=== PATIENT | female | born 1965 | race Caucasian/White ===

== ENCOUNTER 2020-02-26 11:46 | Inpatient (IN) ==
[2020-02-26 13:33] LABS: Basophils # (auto) 0.01 K/uL (0-0.2); Basophils % (auto) 0.1 %; Eosinophils # (auto) 0.03 K/uL (0-0.5); Eosinophils % (auto) 0.3 %; Hematocrit (blood only) 33.2 % (37-47); Hemoglobin 10.3 g/dL (12.0-16.0); Immature Granulocytes # (auto) 0.01 K/uL (0.00-0.02); Immature Granulocytes % (auto) 0.1 %; Lymphocytes # (auto) 0.72 K/uL (1.2-3.4); Lymphocytes % (auto) 6.9 %; Mean Corpuscular Hemoglobin 28.9 pg (25-34); Mean Corpuscular Volume 93.3 fL (80-100); Mean Platelet Volume 9.6 fL (7.4-10.4); Monocytes # (auto) 0.88 K/uL (0.11-0.59); Monocytes % (auto) 8.5 %; Neutrophils # (auto) 8.75 K/uL (1.4-6.5); Neutrophils % (auto) 84.1 %; Platelet Count 352 K/uL (130-400); RDW Coefficient of Variation 13.1 % (11.5-14.5); Red Blood Count 3.56 M/uL (4.2-5.4)
--- NOTE | 2020-02-26 13:38 | Emergency Department Note ---
History of Present Illness General Chief complaint: Infection, Wound Stated complaint: POST SURGERY, SOB, PUS COMING FROM WOUND Time Seen by Provider: 02/26/20 13:03 Source: patient History of Present Illness Provider complaint: Right chest pain Onset (ago): day(s) Location: chest and right Radiation: non-radiation Pain Consistency: + constant Maximum Pain Intensity: 9 Quality: + sharp Relieved By: + other (Deep breaths) Associated symptoms: + fever/chills (Temperature of 100.1 today) and + shortness of breath; no cough This is a 55-year-old female with a history of lung cancer status post bilateral mastectomy and implant placement February 07 presenting with right-sided chest pain. She describes the pain as sharp. Is worse when she takes deep breaths. It started yesterday. It is associated with shortness of breath as well as a low- grade temperature of 100.1 today. She rates her pain a 9 out of 10 in severity at its worst. She denies any cough or cold symptoms or known exposure to COVID- 19. She has had no myalgias, abdominal pain, loss of taste or smell. She did have a COVID-19 test prior to her surgery on February 07 which was negative. She denies any leg swelling or pain. She is on Xarelto because she had a clot at the [id number] tip which was removed in [place] recently. She states that she has never had a clot in the lungs or legs. She was sent over by her doctor for evaluation of possible clot in her lungs. She has not taken Xarelto today. She does state that she also noticed that 1 of the wounds on the right side where she is having pain was draining some blood and pus since yesterday. She did have the drain pulled out last week on . Home Medications Home Medications Medication Instructions Recorded Confirmed Type calcium carbonate-vitamin D3 1 tab PO QAM 02/26/20 02/26/20 History [Caltrate with Vitamin D3] diazepam 5 mg PO UD 02/26/20 02/26/20 History letrozole 2.5 mg PO QAM 02/26/20 02/26/20 History multivitamin 1 tab PO QAM 02/26/20 02/26/20 History oxycodone 5 mg PO Q4H PRN 02/26/20 02/26/20 History rivaroxaban [Xarelto] 20 mg PO QAM 02/26/20 02/26/20 History trastuzumab 0 mg IV UD 02/26/20 02/26/20 History Allergies Allergy/AdvReac Type Severity Reaction Status Date / Time No Known Allergies Allergy Verified 02/26/20 14:24 Past Med/Surg History Medical History (Updated 02/26/20 @ 17:55 by James Stewart MD) Breast cancer Genital warts History of ovarian cyst History of pulmonary embolus (PE) Sep 2019 Surgical History (Updated 02/26/20 @ 17:55 by James Stewart MD) S/P bilateral mastectomy (Acute) [place] teeth extracted Family History Mother Breast cancer, Onset Age: 60 Denies family history of Ovarian cancer Colorectal cancer Social History Feels Safe at Home: Yes Smoking Status: Never smoker Hx Substance Use: No Review of Systems See HPI for pertinent positives & negatives. and A total of 10 systems reviewed and were otherwise negative Physical Exam Vital Signs Vital Signs - 24 hr 02/26/20 11:53 02/26/20 12:00 02/26/20 12:30 Temperature 37.0 C Temperature Source Oral Pulse Rate 132 H 120 H Pulse Rate [Apical] 120 H Pulse Rate from SpO2 Sensor Pulse Rhythm Regular Regular Pulse Rhythm [Apical] Pulse Strength Normal Pulse Strength [Apical] Respiratory Rate 18 18 18 Respiratory Effort / Characteristics Non-Labored Non-Labored Spontaneous Respiratory Depth Normal Normal Respiratory Pattern Regular Regular Blood Pressure 116/65 Blood Pressure [Right Arm] 121/66 Blood Pressure Mean 82 Blood Pressure Mean [Right Arm] 84 Blood Pressure Position Sitting Blood Pressure Position [Right Arm] Sitting Pulse Oximetry 92 93 93 Oxygen Delivery Method Room Air Room Air Room Air Sepsis Recent Fever Within 48 Hours Yes Sepsis Action Taken by Nursing No Action Required 02/26/20 13:30 02/26/20 13:48 02/26/20 14:00 Temperature Temperature Source Pulse Rate 108 H 105 H Pulse Rate [Apical] 110 H Pulse Rate from SpO2 Sensor 109 H 106 H Pulse Rhythm Pulse Rhythm [Apical] Regular Pulse Strength Pulse Strength [Apical] Normal Respiratory Rate 18 23 24 Respiratory Effort / Characteristics Non-Labored Spontaneous Respiratory Depth Normal Respiratory Pattern Regular Blood Pressure 118/72 123/78 Blood Pressure [Right Arm] 120/74 Blood Pressure Mean 89 83 Blood Pressure Mean [Right Arm] 89 Blood Pressure Position Blood Pressure Position [Right Arm] Sitting Pulse Oximetry 95 95 95 Oxygen Delivery Method Room Air Sepsis Recent Fever Within 48 Hours Sepsis Action Taken by Nursing 02/26/20 14:01 02/26/20 14:15 02/26/20 14:37 Temperature Temperature Source Pulse Rate 113 H 108 H 112 H Pulse Rate [Apical] Pulse Rate from SpO2 Sensor 110 H 106 H 113 H Pulse Rhythm Pulse Rhythm [Apical] Pulse Strength Pulse Strength [Apical] Respiratory Rate 27 H 21 21 Respiratory Effort / Characteristics Respiratory Depth Respiratory Pattern Blood Pressure Blood Pressure [Right Arm] Blood Pressure Mean Blood Pressure Mean [Right Arm] Blood Pressure Position Blood Pressure Position [Right Arm] Pulse Oximetry 94 96 96 Oxygen Delivery Method Sepsis Recent Fever Within 48 Hours Sepsis Action Taken by Nursing 02/26/20 14:45 02/26/20 15:00 02/26/20 15:15 Temperature Temperature Source Pulse Rate 109 H 109 H 106 H Pulse Rate [Apical] Pulse Rate from SpO2 Sensor 109 H 109 H 107 H Pulse Rhythm Pulse Rhythm [Apical] Pulse Strength Pulse Strength [Apical] Respiratory Rate 24 20 20 Respiratory Effort / Characteristics Respiratory Depth Respiratory Pattern Blood Pressure 97/59 L Blood Pressure [Right Arm] Blood Pressure Mean 65 Blood Pressure Mean [Right Arm] Blood Pressure Position Blood Pressure Position [Right Arm] Pulse Oximetry 94 92 92 Oxygen Delivery Method Sepsis Recent Fever Within 48 Hours Sepsis Action Taken by Nursing 02/26/20 15:30 02/26/20 15:31 02/26/20 15:45 Temperature Temperature Source Pulse Rate 110 H 104 H 115 H Pulse Rate [Apical] Pulse Rate from SpO2 Sensor 110 H 104 H 114 H Pulse Rhythm Pulse Rhythm [Apical] Pulse Strength Pulse Strength [Apical] Respiratory Rate 18 17 20 Respiratory Effort / Characteristics Respiratory Depth Respiratory Pattern Blood Pressure 100/55 L 110/76 Blood Pressure [Right Arm] Blood Pressure Mean 70 87 Blood Pressure Mean [Right Arm] Blood Pressure Position Blood Pressure Position [Right Arm] Pulse Oximetry 91 92 97 Oxygen Delivery Method Sepsis Recent Fever Within 48 Hours Sepsis Action Taken by Nursing 02/26/20 15:46 02/26/20 16:00 02/26/20 16:15 Temperature Temperature Source Pulse Rate 103 H 111 H 109 H Pulse Rate [Apical] Pulse Rate from SpO2 Sensor 105 H 113 H 109 H Pulse Rhythm Pulse Rhythm [Apical] Pulse Strength Pulse Strength [Apical] Respiratory Rate 17 22 20 Respiratory Effort / Characteristics Respiratory Depth Respiratory Pattern Blood Pressure 109/75 Blood Pressure [Right Arm] Blood Pressure Mean 97 Blood Pressure Mean [Right Arm] Blood Pressure Position Blood Pressure Position [Right Arm] Pulse Oximetry 97 93 96 Oxygen Delivery Method Sepsis Recent Fever Within 48 Hours Sepsis Action Taken by Nursing 02/26/20 16:30 02/26/20 16:45 02/26/20 17:00 Temperature Temperature Source Pulse Rate 112 H 108 H 117 H Pulse Rate [Apical] Pulse Rate from SpO2 Sensor 112 H 107 H 117 H Pulse Rhythm Pulse Rhythm [Apical] Pulse Strength Pulse Strength [Apical] Respiratory Rate 22 20 25 H Respiratory Effort / Characteristics Respiratory Depth Respiratory Pattern Blood Pressure 102/67 109/72 Blood Pressure [Right Arm] Blood Pressure Mean 80 87 Blood Pressure Mean [Right Arm] Blood Pressure Position Blood Pressure Position [Right Arm] Pulse Oximetry 93 95 Oxygen Delivery Method Sepsis Recent Fever Within 48 Hours Sepsis Action Taken by Nursing 02/26/20 17:15 02/26/20 17:30 02/26/20 17:45 Temperature Temperature Source Pulse Rate 112 H 110 H 111 H Pulse Rate [Apical] Pulse Rate from SpO2 Sensor 112 H 111 H 111 H Pulse Rhythm Pulse Rhythm [Apical] Pulse Strength Pulse Strength [Apical] Respiratory Rate 29 H 19 25 H Respiratory Effort / Characteristics Respiratory Depth Respiratory Pattern Blood Pressure 104/66 Blood Pressure [Right Arm] Blood Pressure Mean 81 Blood Pressure Mean [Right Arm] Blood Pressure Position Blood Pressure Position [Right Arm] Pulse Oximetry 90 95 95 Oxygen Delivery Method Sepsis Recent Fever Within 48 Hours Sepsis Action Taken by Nursing Constitutional: Vital signs reviewed. Eyes: Pupils are equal round reactive to light. Conjunctiva are noninjected. ENT: Pharynx is clear without erythema or exudate. Mucous membranes are moist. Neck supple without meningeal signs. Respiratory: Clear to auscultation bilaterally. Breath sounds are equal bilaterally. Cardiovascular: Tachycardic. Heart rate 120. Breast: On the right chest wall there is a open wound which is draining a slight amount of pus and blood. There is some induration to the area. No surrounding cellulitis. GI: Soft, nondistended and nontender. Bowel sounds are present. Musculoskeletal: No peripheral edema. No lower extremity tenderness. Integumentary: No cyanosis. or jaundice. Neurological: The patient is awake and alert. No focal deficits. Psychiatric: Normal affect. Not anxious appearing. Course Administered Medications Doxycycline Hyclate 100 mg/ (Dextrose) 110 mls @ 50 mls/hr IV NOW STA Stop: 02/26/20 18:18 Last Admin: 02/26/20 17:39 Dose: 50 mls/hr Documented by: [id number] Ioversol (Optiray 320 125ml) 118 ml IV ONCE PRN PRN Reason: Interaction Checking Stop: 03/01/20 14:29 Last Admin: 02/26/20 14:30 Dose: 118 ml Documented by: [id number] Discontinued Medications Sodium Chloride (Nss 1000ml) 1,000 mls @ 999 mls/hr IV .Q1H1M ONE Stop: 02/26/20 16:11 Last Admin: 02/26/20 15:52 Dose: 999 mls/hr Documented by: [id number] Morphine Sulfate (Morphine Sulfate) 4 mg IV NOW STA Stop: 02/26/20 13:58 Last Admin: 02/26/20 14:12 Dose: 4 mg Documented by: [id number] Ondansetron HCl (Zofran) 4 mg IV NOW STA Stop: 02/26/20 13:58 Last Admin: 02/26/20 14:12 Dose: 4 mg Documented by: [id number] Rivaroxaban (Xarelto) 20 mg PO NOW STA Stop: 02/26/20 16:08 Last Admin: 02/26/20 17:39 Dose: 20 mg Documented by: [id number] Medical Decision Making Differential Diagnosis Cutaneous abscess, post operative infection, PE, DVT, pneumonia, sepsis Medical Records Attestation: I reviewed the patient's medical records. The patient had a CT scan of the chest in November which demonstrated no evidence of PE. Home Medications Current Medication List: was personally reviewed by me Laboratory Data Attestation: I reviewed the patient's lab results. Result diagrams: 02/26/20 13:14 02/26/20 13:14 Lab Results 02/26/20 02/26/20 02/26/20 Range/Units 13:14 13:14 13:14 WBC 10.40 (4.8-10.8) K/uL RBC 3.56 L (4.2-5.4) M/uL Hgb 10.3 L (12.0-16.0) g/dL Hct 33.2 L (37-47) % MCV 93.3 (80-100) fL MCH 28.9 (25-34) pg MCHC 31.0 L (32-36) g/dL RDW Std Deviation 45.0 (36.4-46.3) fL RDW Coeff of Ottoniel 13.1 (11.5-14.5) % Plt Count 352 (130-400) K/uL MPV 9.6 (7.4-10.4) fL Immature Gran % (Auto) 0.1 % Neut % (Auto) 84.1 % Lymph % (Auto) 6.9 % [place] % (Auto) 8.5 % Eos % (Auto) 0.3 % Baso % (Auto) 0.1 % Neut # (Auto) 8.75 H (1.4-6.5) K/uL Lymph # (Auto) 0.72 L (1.2-3.4) K/uL [place] # (Auto) 0.88 H (0.11-0.59) K/uL Eos # (Auto) 0.03 (0-0.5) K/uL Baso # (Auto) 0.01 (0-0.2) K/uL Immature Gran # (Auto) 0.01 (0.00-0.02) K/uL PT 11.7 (9.0-12.0) Seconds INR 1.1 (0.9-1.1) APTT 39.0 H (21.0-31.0) Seconds PTT Ratio 1.4 Sodium 137 (136-145) mmol/L Potassium 3.9 (3.5-5.1) mmol/L Chloride 105 (98-107) mmol/L Carbon Dioxide 27 (21-32) mmol/L Anion Gap 5.0 (3-11) BUN 10 (7-18) mg/dl Creatinine 1.07 (0.6-1.2) mg/dl Est Cr Clr Drug Dosing 52.8 ml/min Est GFR ( Amer) 67.2 Est GFR (Non-Af Amer) 58.0 BUN/Creatinine Ratio 9.5 L (10-20) Glucose 112 H (70-99) mg/dl Lactate (0.4-2.0) mmol/L Calcium 9.4 (8.5-10.1) mg/dl Magnesium 2.0 (1.8-2.4) mg/dl Total Bilirubin 0.4 (0.2-1) mg/dl AST 15 (15-37) U/L ALT 37 (12-78) U/L Alkaline Phosphatase 115 (45-117) U/L Troponin I < 0.015 (0-0.045) ng/ml Total Protein 7.6 (6.4-8.2) gm/dl Albumin 3.2 L (3.4-5.0) gm/dl Globulin 4.4 H (2.5-4.0) gm/dl Albumin/Globulin Ratio 0.7 L (0.9-2) 02/26/20 Range/Units 13:14 WBC (4.8-10.8) K/uL RBC (4.2-5.4) M/uL Hgb (12.0-16.0) g/dL Hct (37-47) % MCV (80-100) fL MCH (25-34) pg MCHC (32-36) g/dL RDW Std Deviation (36.4-46.3) fL RDW Coeff of Ottoniel (11.5-14.5) % Plt Count (130-400) K/uL MPV (7.4-10.4) fL Immature Gran % (Auto) % Neut % (Auto) % Lymph % (Auto) % [place] % (Auto) % Eos % (Auto) % Baso % (Auto) % Neut # (Auto) (1.4-6.5) K/uL Lymph # (Auto) (1.2-3.4) K/uL [place] # (Auto) (0.11-0.59) K/uL Eos # (Auto) (0-0.5) K/uL Baso # (Auto) (0-0.2) K/uL Immature Gran # (Auto) (0.00-0.02) K/uL PT (9.0-12.0) Seconds INR (0.9-1.1) APTT (21.0-31.0) Seconds PTT Ratio Sodium (136-145) mmol/L Potassium (3.5-5.1) mmol/L Chloride (98-107) mmol/L Carbon Dioxide (21-32) mmol/L Anion Gap (3-11) BUN (7-18) mg/dl Creatinine (0.6-1.2) mg/dl Est Cr Clr Drug Dosing ml/min Est GFR ( Amer) Est GFR (Non-Af Amer) BUN/Creatinine Ratio (10-20) Glucose (70-99) mg/dl Lactate 1.7 (0.4-2.0) mmol/L Calcium (8.5-10.1) mg/dl Magnesium (1.8-2.4) mg/dl Total Bilirubin (0.2-1) mg/dl AST (15-37) U/L ALT (12-78) U/L Alkaline Phosphatase (45-117) U/L Troponin I (0-0.045) ng/ml Total Protein (6.4-8.2) gm/dl Albumin (3.4-5.0) gm/dl Globulin (2.5-4.0) gm/dl Albumin/Globulin Ratio (0.9-2) Imaging Data Radiologist's Impression: CT ANGIOGRAM OF THE CHEST CLINICAL HISTORY: Right-sided chest pain. Possible pulmonary embolism. COMPARISON STUDY: 11/30/2019 TECHNIQUE: Following the IV administration of 118 mL of Optiray-320, CT angiogram of the thorax was performed from the thoracic inlet to the lung bases utilizing the pulmonary embolus protocol. Images are reviewed in the axial, sagittal, and coronal planes. IV contrast was administered without complication. MIP imaging was performed. A dose lowering technique was utilized adhering to the principles of ALARA. CT DOSE: 680.42 mGy.cm FINDINGS: There are bilateral breast implants with periimplant fluid. There is inferior breast skin thickening. The findings are likely postsurgical as these implants were not present on the preceding study. There is a multinodular thyroid gland which has been discussed on prior studies. The largest nodule measures 38 mm. No pathologically enlarged axillary mediastinal or hilar lymph nodes were visualized. There was no evidence of thoracic aortic dilatation. There were no pulmonary artery filling defects to indicate acute pulmonary embolism. There is a small right pleural effusion. There are bilateral lower lobe dependent airspace opacities, statistically atel ectatic. There are mildly reduced volumes.. IMPRESSION: 1. No evidence of acute pulmonary embolism 2. Bilateral lower lobe dependent airspace opacities statistically atelectatic 3. Multinodular thyroid gland with a dominant 38 mm left lobe nodule 4. Postsurgical changes of bilateral breast implants. ACT 112: Negative or not required by law. Electronically signed by: John Yee M.D. 02/26/2020 2:42 PM ECG Data Attestation: I personally reviewed and interpreted this ECG as follows: Indication: + chest pain Rate (beats per minute): 107 Rhythm: + sinus tachycardia ECG Intervals/blocks: no First degree AV block ECG ST segments: no ST elevation ECG Findings: no PVCs Blood Pressure Blood Pressure Findings: Elevated blood pressure Blood Pressure Disposition: Referred to patients primary care provider MDM Narrative I did evaluate the patient as noted above. The patient is presenting with low- grade temperatures, tachycardia and drainage from her wound. IV access was established. I did place an order for continuous cardiac monitoring. The m onitor showed sinus tachycardia with a heart rate of 120. I did order and personally review the patient's 12-lead EKG as described above. She has sinus tachycardia without acute ischemia. I did order and review the patient's blood work as noted in the electronic medical record. She has stable anemia with a hemoglobin of 10. Her white count is not elevated. Troponin is negative. Electrolytes are unremarkable. I did order a CT angiogram of the chest. I did review the images myself as well as the radiology report as described above. There is no evidence of pulmonary embolism. She does have a multinodular thyroid gland. There is also bilateral lower lobe dependent airspace opacities which was thought to be atelectasis. The radiologist. I did obtain a wound culture from the drainage from her right breast wound. I did treat the patient with IV morphine and Zofran. She was also given normal saline IV. Her tachycardia improved but she still remains tachycardic and slightly hypotensive. I did discuss the test results with the patient. I did recommend hospitalization for further care and evaluation. I did discuss the case with Dr. Lucas who is her surgeon at [facility]. She did not feel the patient needed to be transferred and felt that her symptoms were likely secondary to her chemotherapy and not related to a wound infection. He did recommend IV doxycycline for the drainage. I did order IV doxycycline for the patient. I did discuss her recommendations and she was agreeable to hospitalization here. I did discuss case with the hospitalist and case operator. Impression & Plan Right-sided chest pain, S/P bilateral mastectomy, Surgical wound infection, Acute dyspnea, Acute hypotension, Tachycardia, Anemia Discharge Plan Visit Data Chief Complaint: Infection, Wound Stated Complaint: POST SURGERY, SOB, PUS COMING FROM WOUND ED Provider: James Stewart Discharge Problem: Right-sided chest pain, S/P bilateral mastectomy, Surgical wound infection, Acute dyspnea, Acute hypotension, Tachycardia, Anemia Patient Disposition: Being Evaluated by Hospitalist Forms Stand Alone Forms: Pending Sale To [facility] Prescriptions Prescriptions: No Action multivitamin Tablet 1 tab PO QAM RF: 0 letrozole 2.5 mg tablet 2.5 mg PO QAM RF: 0 diazepam 5 mg tablet 5 mg PO UD RF: 0 oxycodone 5 mg tablet 5 mg PO Q4H PRN (Reason: Pain) RF: 0 Xarelto 20 mg tablet 20 mg PO QAM RF: 0 calcium carbonate-vitamin D3 [Caltrate with Vitamin D3] 600 mg(1,500mg) -800 unit Tablet 1 tab PO QAM RF: 0 trastuzumab 150 mg Recon Soln 0 mg IV UD RF: 0 Referrals Referrals: Анна Elise MD [Primary Care Provider] -
[2020-02-26 13:43] LABS: INR 1.1 (0.9-1.1); Partial Thromboplastin Ratio 1.4; Prothrombin Time 11.7 Seconds (9.0-12.0)
[2020-02-26 13:50] LABS: Alanine Aminotransferase 37 U/L (12-78); Albumin Level 3.2 gm/dl (3.4-5.0); Aspartate Aminotransferase 15 U/L (15-37); BUN Creatinine Ratio 9.5 (10-20); Blood Urea Nitrogen 10 mg/dl (7-18); Calcium 9.4 mg/dl (8.5-10.1); Carbon Dioxide 27 mmol/L (21-32); Chloride 105 mmol/L (98-107); Creatinine Clr Calc Pharmacy 52.8 ml/min; Est GFR (African American) 67.2; Glucose 112 mg/dl (70-99); Potassium 3.9 mmol/L (3.5-5.1); Sodium 137 mmol/L (136-145)
[2020-02-26 13:55] LABS: Albumin Globulin Ratio 0.7 (0.9-2); Alkaline Phosphatase 115 U/L (45-117); Bilirubin,Total 0.4 mg/dl (0.2-1); Globulin 4.4 gm/dl (2.5-4.0); Total Protein 7.6 gm/dl (6.4-8.2); Troponin I < 0.015 ng/ml (0-0.045)
[2020-02-26] MEDS ORDERED: MoRPHine SULFATE 4 MG/ML 1 ML CARP\\VIAL IV STA (13:57)
[2020-02-26] MEDS ORDERED: ONDANSETRON INJ 2 MG/ML 2 ML VIAL IV STA (13:57)
[2020-02-26] MEDS ORDERED: OPTIRAY 320 125ml IV PRN (14:30)
--- NOTE | 2020-02-26 14:43 | CT Scan Report ---
CT ANGIOGRAM OF THE CHEST CLINICAL HISTORY: Right-sided chest pain. Possible pulmonary embolism. COMPARISON STUDY: 11/30/2019 TECHNIQUE: Following the IV administration of 118 mL of Optiray-320, CT angiogram of the thorax was p erformed from the thoracic inlet to the lung bases utilizing the pulmonary embolus protocol. Images a re reviewed in the axial, sagittal, and coronal planes. IV contrast was administered without complica tion. MIP imaging was performed. A dose lowering technique was utilized adhering to the principles o f ALARA. CT DOSE: 680.42 mGy.cm FINDINGS: There are bilateral breast implants with periimplant fluid. There is inferior breast skin thickening. The findings are likely postsurgical as these implants were not present on the preceding study. There is a multinodular thyroid gland which has been discussed on prior studies. The largest nodule m easures 38 mm. No pathologically enlarged axillary mediastinal or hilar lymph nodes were visualized. There was no evidence of thoracic aortic dilatation. There were no pulmonary artery filling defects to indicate acute pulmonary embolism. There is a small right pleural effusion. There are bilateral lower lobe dependent airspace opacities, statistically atelectatic. There are mildly reduced volumes.. IMPRESSION: 1. No evidence of acute pulmonary embolism 2. Bilateral lower lobe dependent airspace opacities statistically atelectatic 3. Multinodular thyroid gland with a dominant 38 mm left lobe nodule 4. Postsurgical changes of bilateral breast implants. ACT 112: Negative or not required by law. Electronically signed by: John Yee M.D. 02/26/2020 2:42 PM
[2020-02-26] MEDS ORDERED: SODIUM CHLORIDE 0.9% 1000ML 1,000 ML IV ONE (15:11)
--- NOTE | 2020-02-26 16:00 | Electrocardiogram Report ---
Test Reason : Blood Pressure : / mmHG Vent. Rate : 107 BPM Atrial Rate : 107 BPM P-R Int : 158 ms QRS Dur : 084 ms QT Int : 336 ms P-R-T Axes : 041 -06 019 degrees QTc Int : 448 ms Sinus tachycardia RSR' or QR pattern in V1 suggests right ventricular conduction delay Nonspecific T wave abnormality Abnormal ECG No previous ECGs available Confirmed by Rickey Estevez ([id number]) on 02/26/2020 4:00:06 PM Referred By: Orlando Keller Confirmed By:Rickey Estevez
[2020-02-26] MEDS ORDERED: RIVAROXABAN 20 MG TAB PO STA (16:07)
[2020-02-26] MEDS ORDERED: DOXYCYCLINE HYCLATE 100 MG in DEXTROSE 5% 100 ML IV STA (16:07)
--- NOTE | 2020-02-26 17:01 | History & Physical Report ---
Date of Service February 26, 2020 Assessment & Plan (1) Surgical wound infection: Continue IV doxycycline as recommend by her surgeon Follow up wound and blood cultures (2) Right-sided chest wall pain: Reproducible chest wall pain with reassuringly normal troponin and no PE on CT No real improvement with diazepam outpatient and pain is not physically cramping Suspect postsurgical nerve irritation versus wound infection causing inflammation Pain relief with scheduled acetaminophen, Toradol 15 mg IV every 6 hours as needed, oxycodone 5 mg p.o. every 4 hours as needed Incentive spirometry to reduce risk pneumonia (3) Fever: Low-grade fever as outpatient noted by patient. Monitor for recurrent fever overnight. Possibly secondary to surgical wound infection as above. 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 daily (5) Tachycardia: Sinus. Likely related to pain, mild dehydration, possible response to infection. (6) History of pulmonary embolus (PE): Continue rivaroxaban 20 mg p.o. daily (7) Thyroid nodule: Noted incidentally on CT. Previous ultrasound of this in July although I am unclear whether FNA was performed at this time. No pathology in [facility] EHR. Please clarify tomorrow whether this has been appropriately managed as this was ordered by her PCP rather than her oncologist. (8) DVT prophylaxis: Continue on rivaroxaban as above Admission and Anticipated Discharge Date Admission Date: February 26, 2020 History of Present Illness Chief Complaint: Fever, shortness of breath, chest pain Primary Care Provider: Анна Elise MD Elaine Burns is a 55-year-old female with history of bilateral breast cancer who presents to the ER with low-grade fever and right-sided chest pain. Her symptoms started at the same time last night. The pain is sharp, worse on inspiration and palpation, associated shortness of breath and low-grade fever. Currently severity 6/10, on arrival in the ER 9/10. No cough or known exposure to COVID-19. No myalgias, abdominal pain, loss of taste or smell. Previous SARS-CoV-2 test negative prior to her surgery on February 07 (not available in EHR). She had right stage IIIb T4N2M0 grade 2 invasive ductal carcinoma and left stage Ia will tolerate biology [id number] grade 2 invasive ductal carcinoma, grade 3 ductal carcinoma in situ and grade 2 invasive lobular carcinoma. She received neoadjuvant chemotherapy with good response. However this was complicated in September when she developed a blood clot around her port catheter for which she is being treated with Xarelto. She underwent bilateral mastectomy with removal of Mediport earlier this month with subsequent drain removal last week. She was doing relatively well after the drain removal up until last night. Her care was discussed by Dr. Stewart in the ER with Dr. Emigdio Lucas (patient[place] [facility] [place] who advised for patient admission with intravenous doxycycline to cover for a postoperative surgical wound infection. Allergies Allergy/AdvReac Type Severity Reaction Status Date / Time No Known Allergies Allergy Verified 02/26/20 14:24 Home Medications Home Medications Medication Instructions Recorded Confirmed Type calcium carbonate-vitamin D3 1 tab PO QAM 02/26/20 02/26/20 History [Caltrate with Vitamin D3] diazepam 5 mg PO UD 02/26/20 02/26/20 History letrozole 2.5 mg PO QAM 02/26/20 02/26/20 History multivitamin 1 tab PO QAM 02/26/20 02/26/20 History oxycodone 5 mg PO Q4H PRN 02/26/20 02/26/20 History rivaroxaban [Xarelto] 20 mg PO QAM 02/26/20 02/26/20 History trastuzumab 0 mg IV UD 02/26/20 02/26/20 History Past Med/Surg History Medical History (Updated 02/27/20 @ 01:23 by Alex Guo MD) Breast cancer 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 Neoadjuvant chemotherapy followed by bilateral mastectomy. 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 Beliefs That Will Affect Care: None Current Living Situation: Spouse Current Living Situation Comment: House Other Information That Helps Us Care for You: No Feels Safe at Home: Yes Safety Concerns: Feels Safe At This Time Smoking Status: Former smoker Hx Alcohol Use: No Hx Substance Use: No Review of Systems Review of Systems: All systems reviewed & are unremarkable except as noted in HPI & below Physical Exam Constitutional: well developed and + frail appearing; + not well nourished and no acute distress Eyes: + anicteric sclerae; normal pupil size ENMT: external ear and nose normal, oropharynx normal Neck: trachea midline Respiratory: normal respiratory effort, lungs clear to auscultation Cardiovascular: Rate/Rhythm: regular rhythm and + tachycardic Heart Sounds: no murmur Vessels: no JVD Extremities: normal capillary refill; no calf tenderness and no pedal edema Chest (Breasts): normal inspection/palpation of breasts (open wound at site of previous drain without current drainage but noted to have positive blood in ER, no surrounding cellulitis) Gastrointestinal (Abdomen): normal bowel sounds, soft, nontender, no hepatosplenomegaly Musculoskeletal: no cyanosis or clubbing, extremities motor strength 5/5 Skin: no rashes, warm and dry Neurologic: moves all extremities and awake; not confused Psychiatric: A+Ox3, euthymic affect Results & Data Results & Data ([facility]) Vital Signs (Past 12 Hours) Vital Signs Temp Pulse Pulse Resp BP BP Pulse Ox 02/26/20 15:46 103 H 17 97 02/26/20 15:45 115 H 20 110/76 97 02/26/20 15:31 104 H 17 92 02/26/20 15:30 110 H 18 100/55 L 91 02/26/20 15:15 106 H 20 92 02/26/20 15:00 109 H 20 97/59 L 92 02/26/20 14:45 109 H 24 94 02/26/20 14:37 112 H 21 96 02/26/20 14:15 108 H 21 96 02/26/20 14:01 113 H 27 H 94 02/26/20 14:00 105 H 24 123/78 95 02/26/20 13:48 108 H 23 118/72 95 02/26/20 13:30 110 H 18 120/74 95 02/26/20 12:30 120 H 18 93 02/26/20 12:00 120 H 18 121/66 93 02/26/20 11:53 37.0 C 132 H 18 116/[address] ANGIOGRAM OF THE CHEST IMPRESSION: 1. No evidence of acute pulmonary embolism 2. Bilateral lower lobe dependent airspace opacities statistically atelectatic 3. Multinodular thyroid gland with a dominant 38 mm left lobe nodule 4. Postsurgical changes of bilateral breast implants. Code Status & VTE Plan Code Status Full as discussed with the patient VTE Prophylaxis Plan VTE Prophylaxis will be ordered: Yes PG Care Time/CCT Total # of Minutes Spent Total Time Spent with Patient: Total time spent is greater than 50% in coordination of care (as documented) at patient's floor/unit and/or counseling patient: Coding Level of Care Code 74134 OBS Care - Level 3 Diagnoses Surgical wound infection T81.49XA Right-sided chest wall pain R07.89 Fever R50.81 Fever type: due to other condition Breast cancer C50.811; C50.812; Z17.0 Breast location: overlapping sites of breast Estrogen receptor status: positive Patient sex: female Laterality: bilateral Tachycardia R00.0 History of pulmonary embolus (PE) Z86.711 Thyroid nodule E04.1 DVT prophylaxis Z29.9 (1) Breast cancer Breast location: overlapping sites of breast Estrogen receptor status: positive Patient sex: female Laterality: bilateral Qualified Code(s): C50.811 - Malignant neoplasm of overlapping sites of right female breast; C50.812 - Malignant neoplasm of overlapping sites of left female breast; Z17.0 - Estrogen receptor positive status [ER+] (2) Fever Fever type: due to other condition Qualified Code(s): R50.81 - Fever presenting with conditions classified elsewhere
[2020-02-26] MEDS ORDERED: LETROZOLE 2.5 MG TAB PO ONE (17:52)
[2020-02-26] MEDS: OXYCODONE HCL IR 5 MG TAB (IMMEDIATE RELEASE) PO PRN ×2 (19:21→23:52)
[2020-02-26] MEDS: ACETAMINOPHEN 325 MG TAB PO SCH (20:25)
[2020-02-27] MEDS: DOXYCYCLINE HYCLATE 100 MG in DEXTROSE 5% 100 ML IV SCH ×2 (05:42→18:00)
[2020-02-27] MEDS: OXYCODONE HCL IR 5 MG TAB (IMMEDIATE RELEASE) PO PRN ×2 (06:28→22:04)
[2020-02-27 07:59] LABS: Basophils # (auto) 0.02 K/uL (0-0.2); Basophils % (auto) 0.3 %; Eosinophils # (auto) 0.08 K/uL (0-0.5); Eosinophils % (auto) 1.1 %; Hemoglobin 8.9 g/dL (12.0-16.0); Immature Granulocytes # (auto) 0.02 K/uL (0.00-0.02); Immature Granulocytes % (auto) 0.3 %; Mean Corpuscular Hemoglobin 28.2 pg (25-34); Mean Corpuscular Hgb Conc 30.7 g/dL (32-36); Mean Corpuscular Volume 91.8 fL (80-100); Mean Platelet Volume 9.7 fL (7.4-10.4); Monocytes # (auto) 0.67 K/uL (0.11-0.59); Monocytes % (auto) 8.9 %; Neutrophils # (auto) 6.11 K/uL (1.4-6.5); Neutrophils % (auto) 81.4 %; Platelet Count 314 K/uL (130-400); RDW Coefficient of Variation 13.2 % (11.5-14.5); RDW Standard Deviation 44.5 fL (36.4-46.3); Red Blood Count 3.16 M/uL (4.2-5.4)
[2020-02-27] MEDS: MULTIVITAMIN TAB PO SCH (08:12)
[2020-02-27] MEDS: LETROZOLE 2.5 MG TAB PO SCH (08:12)
[2020-02-27] MEDS: CALCIUM 600MG + VIT D 400 IU TAB PO SCH (08:12)
[2020-02-27 08:16] LABS: BUN Creatinine Ratio 8.2 (10-20); Calcium 9.3 mg/dl (8.5-10.1); Est GFR (African American) 86.3; Est GFR (Non-African American) 74.5
[2020-02-27] MEDS: ACETAMINOPHEN 325 MG TAB PO SCH ×5 (08:16→21:29)
[2020-02-27] MEDS ORDERED: ONDANSETRON INJ 2 MG/ML 2 ML VIAL IV PRN (09:56)
[2020-02-27] MEDS: AMPICILLIN/SULBACTAM SOD 3,000 MG in 0.9 % SODIUM CHLORIDE 100 ML IV SCH ×2 (12:55→20:23)
--- NOTE | 2020-02-27 13:27 | Surgery Consultation ---
Date of Consultation February 27, 2020 Assessment & Plan (1) S/P breast reconstruction: At this point, it appears there are some mild cellulitic changes of the right breast, without evidence of abscess. It would be reasonable to consider a trial of intravenous antibiotics. Patient has been started on doxycycline and Unasyn. Will await sensitivities on culture. Discussed with the patient that if erythema worsens, or fails to improve, she may need to have the dishing machine operator removed. Agnes discussed case with Dr. Keller via telephone this afternoon to update him on our findings. We will reassess the patient tomorrow, and we will contact Dr. Keller again if necessary. He is aware patient would prefer transfer if dishing machine operator removal is required. I personally performed the history and physical exam, reviewed imaging, and discussed plan with patient. Portions of documentation completed by Agnes West PA-C, acting as a scribe. (2) Surgical wound infection: (3) S/P bilateral mastectomy: History of Present Illness Attending Physician: Elaine is being seen today in consultation regarding possible infection of right breast tissue dishing machine operator. She was diagnosed with bilateral breast cancer last May 2019. She underwent neoadjuvant chemotherapy completing her course in December. About 3 weeks ago, the patient underwent bilateral mastectomy with immediate reconstruction using tissue expanders in [place] by Dr. Keller and is planning for XRT. She was seen by Dr. Keller 1 week postop. Her right breast drain was removed one week ago. Patient reports developing pain in her right breast two days ago. She noticed purulent appearing drainage on her dressings and temperature of 100.4. She had pain with inspiration and was instructed to go to the local ED to rule out PE by her surgeon in [place]. She has undergone CT which did not reveal a PE. Findings noted below: IMPRESSION: 1. No evidence of acute pulmonary embolism 2. Bilateral lower lobe dependent airspace opacities statistically atelectatic 3. Multinodular thyroid gland with a dominant 38 mm left lobe nodule 4. Postsurgical changes of bilateral breast implants. She has spoken with her breast surgeon as well as plastic surgeon via telephone. She requests that if the dishing machine operator needs to be removed, she would prefer to return to [place]. Allergies Allergy/AdvReac Type Severity Reaction Status Date / Time No Known Allergies Allergy Verified 02/26/20 14:24 Home Medications Home Medications Medication Instructions Recorded Confirmed Type calcium carbonate-vitamin D3 1 tab PO QAM 02/26/20 02/26/20 History [Caltrate with Vitamin D3] diazepam 5 mg PO UD 02/26/20 02/26/20 History letrozole 2.5 mg PO QAM 02/26/20 02/26/20 History multivitamin 1 tab PO QAM 02/26/20 02/26/20 History oxycodone 5 mg PO Q4H PRN 02/26/20 02/26/20 History rivaroxaban [Xarelto] 20 mg PO QAM 02/26/20 02/26/20 History trastuzumab 0 mg IV UD 02/26/20 02/26/20 History Patient History Medical History Breast cancer 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 Neoadjuvant chemotherapy followed by bilateral mastectomy. 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 right breast appears larger than the left with a small area of erythematous soft tissue at the inferior and lateral aspect of the breast. no ofelia cellulitis of the breast Skin: no rashes, warm and dry Psychiatric: A+Ox3, euthymic affect Results & Data Vital Signs (Past 12 Hours) Vital Signs Temp Pulse Pulse Pulse Resp BP Pulse Ox 02/27/20 12:07 36.9 C 104 H 20 100/68 91 02/27/20 09:41 81 102/70 02/27/20 07:48 100 H 02/27/20 07:14 37.1 C 104 H 20 98/67 L 93 02/27/20 03:59 36.6 C 97 H 18 101/68 91 Laboratory Results Laboratory Tests 02/26/20 02/26/20 02/27/20 13:14 13:14 07:40 WBC 7.50 Hgb 8.9 L INR 1.1 APTT 39.0 H Albumin 3.2 L Gram Stain Final 02/26/20-1453 Gram Stain Result Rare WBCs Seen Rare Gram Positive Cocci Surface Wound Culture Preliminary 02/27/20-0955 Organism 1 Staphylococcus aureus Quantity Moderate Sens Sensitivities to Follow Diagnostic Findings IMPRESSION: 1. No evidence of acute pulmonary embolism 2. Bilateral lower lobe dependent airspace opacities statistically atelectatic 3. Multinodular thyroid gland with a dominant 38 mm left lobe nodule 4. Postsurgical changes of bilateral breast implants. I personally reviewed images, no evidence of abscess. Ultrasound performed, report pending PG Care Time/CCT Total # of Minutes Spent Total Time Spent with Patient: Total time spent is greater than 50% in coordination of care (as documented) at patient's floor/unit and/or counseling patient: Coding Level of Care Code 74890 Inpt Consult Level 3 Diagnoses S/P breast reconstruction Z98.82 Surgical wound infection T81.49XA S/P bilateral mastectomy Z90.13
--- NOTE | 2020-02-27 13:27 | Hospitalist Progress Note ---
Date of Service February 27, 2020 Assessment & Plan (1) Surgical wound infection: Right breast. - Discussed with Dr. Guerrero & [place] plastic surgeon. - Continue IV doxycycline & Augmentin as recommend by her surgeons at [place] - Follow up wound and blood cultures - Ultrasound to look for deep fluid collections. - Pain control (2) Breast cancer: Status post neoadjuvant chemotherapy and bilateral mastectomy with breast reconstruction at [place]. 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 Left stage Ia with multi-biology [id number] grade 2 invasive ductal carcinoma, grade 3 ductal carcinoma in situ and grade 2 invasive lobular car cinoma. - Continue letrozole 2.5 mg p.o. daily (3) Tachycardia: Sinus. Likely related to pain, mild dehydration, possible response to infection. - Monitor (4) History of pulmonary embolus (PE): None noted on CTA chest on admission. - Continue rivaroxaban 20 mg p.o. daily (5) Thyroid nodule: Noted incidentally on CT. Previous ultrasound of this in July, although I am unclear whether FNA was performed at this time. [facility]. - Will discuss with patient. (6) DVT prophylaxis: Continue on rivaroxaban as above Admission and Anticipated Discharge Date Admission Date: February 26, 2020 Subjective Continued nausea. Still feels similar to when she arrived. Reports no fevers/chills, shortness of breath, abdominal pain. Physical Exam Constitutional: WD/WN, vitals as above Eyes: EOM intact bilaterally; no conjunctival abnormality ENMT: external ear and nose normal, oropharynx normal Neck: trachea midline, no thyromegaly normal visual inspection Respiratory: normal respiratory effort, lungs clear to auscultation no respiratory distress Cardiovascular: RRR, no murmur, no edema Gastrointestinal (Abdomen): Inspection/Auscultation: abdomen normal to inspection; abdomen not distended Musculoskeletal: no cyanosis or clubbing, extremities motor strength 5/5 Neurologic: moves all extremities and awake Psychiatric: Orientation: alert, oriented to person and cooperative Results & Data Results & Data ([facility]) Vital Signs (Past 12 Hours) Vital Signs Temp Pulse Pulse Pulse Resp BP Pulse Ox 02/27/20 12:07 36.9 C 104 H 20 100/68 91 02/27/20 09:41 81 102/70 02/27/20 07:48 100 H 02/27/20 07:14 37.1 C 104 H 20 98/67 L 93 02/27/20 03:59 36.6 C 97 H 18 101/68 91 PG Care Time/CCT Total # of Minutes Spent Total Time Spent with Patient: Total time spent is greater than 50% in coordination of care (as documented) at patient's floor/unit and/or counseling patient: Coding Level of Care Code 51899 Subseq Hosp Care Lvl 3 Diagnoses Surgical wound infection T81.49XA Breast cancer C50.811; C50.812; Z17.0 Breast location: overlapping sites of breast Estrogen receptor status: positive Patient sex: female Laterality: bilateral Tachycardia R00.0 History of pulmonary embolus (PE) Z86.711 Thyroid nodule E04.1 DVT prophylaxis Z29.9 (1) Breast cancer Breast location: overlapping sites of breast Estrogen receptor status: positive Patient sex: female Laterality: bilateral Qualified Code(s): C50.811 - Malignant neoplasm of overlapping sites of right female breast; C50.812 - Malignant neoplasm of overlapping sites of left female breast; Z17.0 - Estrogen receptor positive status [ER+]
[2020-02-27 13:33] LABS: Appearance Urine Clear (Clear); Bilirubin Urine Negative (Negative); Blood Urine Negative (Negative); Color Urine Yellow; Glucose Urine UA Negative (Negative); Ketones Urine Negative (Negative); Leukocyte Esterase Urine Negative (Negative); Nitrite Urine Negative (Negative); Protein Urine Negative (Negative); Specific Gravity Urine 1.016 (1.000-1.030); Urobilinogen Urine Negative (Negative)
--- NOTE | 2020-02-27 14:48 | Ultrasound Report ---
US breast RT limited CLINICAL HISTORY: Right breast; superficial abscess? Sharon-implant fluid COMPARISON STUDY: CT scan dated 02/26/2020 FINDINGS: The patient has a right breast tissue staff electrical engineer present. There is superficial right breast edema. With in the 6:00 position, there is a periimplant fluid collection measuring 5 x 4 x 1 cm. There is no per ipheral hypervascularity. It is not possible to determine the sterility of this fluid. IMPRESSION: 1. Right breast tissue staff electrical engineer 2. Superficial right breast edema 3. 5 x 4 x 1 cm periimplant fluid collection at the 6:00 position without evidence of peripheral hype rvascularity ACT 112: Negative or not required by law. Electronically signed by: John Yee M.D. 02/27/2020 2:46 PM
[2020-02-27] MEDS: RIVAROXABAN 20 MG TAB PO SCH (15:59)
[2020-02-27] MEDS: KETOROLAC TROMETHAMINE 15 MG/ML VIAL IV PRN (16:08)
[2020-02-28] MEDS: AMPICILLIN/SULBACTAM SOD 3,000 MG in 0.9 % SODIUM CHLORIDE 100 ML IV SCH ×4 (01:01→20:16)
[2020-02-28] MEDS: KETOROLAC TROMETHAMINE 15 MG/ML VIAL IV PRN ×3 (01:46→19:23)
[2020-02-28] MEDS: DOXYCYCLINE HYCLATE 100 MG in DEXTROSE 5% 100 ML IV SCH ×2 (05:32→17:52)
[2020-02-28 07:28] LABS: Hematocrit (blood only) 29.7 % (37-47); Hemoglobin 9.2 g/dL (12.0-16.0); Mean Corpuscular Hemoglobin 28.8 pg (25-34); Mean Corpuscular Volume 93.1 fL (80-100); Mean Platelet Volume 9.2 fL (7.4-10.4); Platelet Count 300 K/uL (130-400); RDW Coefficient of Variation 13.1 % (11.5-14.5); RDW Standard Deviation 44.4 fL (36.4-46.3); Red Blood Count 3.19 M/uL (4.2-5.4); White Blood Count 6.94 K/uL (4.8-10.8)
[2020-02-28] MEDS: MULTIVITAMIN TAB PO SCH (07:29)
[2020-02-28] MEDS: CALCIUM 600MG + VIT D 400 IU TAB PO SCH (07:29)
[2020-02-28] MEDS: ACETAMINOPHEN 325 MG TAB PO SCH ×4 (07:29→20:16)
[2020-02-28] MEDS: LETROZOLE 2.5 MG TAB PO SCH (07:29)
--- NOTE | 2020-02-28 08:35 | Surgery Progress Note ---
Date of Service February 28, 2020 Assessment & Plan (1) S/P breast reconstruction: Patient has been started on doxycycline and Unasyn. Will continue with manual expression of fluid and dressing changes per shift. Will discuss US findings with Dr. Guerrero to determine if placement of drain is necessary. Continue IV abx. (2) Surgical wound infection: (3) S/P bilateral mastectomy: Supervising Physician Co-Signing Physician Notes Will contact Dr. Keller to discuss further but anticipate need for continuous improvement lead to be removed. Subjective Patient is resting comfortably., Reports no pain in the right breast, but continues to have feelings of pressure. VSS. Ultrasound performed yesterday revealed a 5cm fluid collection around right breast implant. IMPRESSION: 1. Right breast tissue continuous improvement lead 2. Superficial right breast edema 3. 5 x 4 x 1 cm periimplant fluid collection at the 6:00 position without evidence of peripheral hypervascularity Wound culture demonstrated Staph A Review of Systems Review of Systems: All systems reviewed & are unremarkable except as noted in HPI & below Respiratory: pain with inspiration Physical Exam Constitutional: WD/WN, vitals as above Chest (Breasts): Additional Comments: There are no cellulitic changes on exam. right breast lateral dressing removed and a significant amount of purulent drainage expressed from right breast by applying pressure from 6:00 to 8:00. at end drainage was bloody red. new dressing applied Results & Data Vital Signs (Past 12 Hours) Vital Signs Temp Pulse Pulse Resp BP Pulse Ox 02/28/20 08:01 36.6 C 100 H 18 105/70 93 02/28/20 06:41 37.1 C 96 H 18 102/66 90 02/28/20 00:32 99 H 02/27/20 22:02 36.9 C 105 H 18 104/72 93 PG Care Time/CCT Total # of Minutes Spent Total Time Spent with Patient: Total time spent is greater than 50% in coordination of care (as documented) at patient's floor/unit and/or counseling patient: Coding Level of Care Code 12082 Subseq Hosp Care Lvl 2 Diagnoses S/P breast reconstruction Z98.82 Surgical wound infection T81.49XA S/P bilateral mastectomy Z90.13
--- NOTE | 2020-02-28 15:22 | Hospitalist Progress Note ---
Date of Service February 28, 2020 Assessment & Plan (1) Surgical wound infection: Right breast. - Discussed with Dr. Guerrero & [facility] plastic surgeon on 02/27 and then with our plastic surgery PA today. -> Wound culture growing MSSA. - Ultrasound on 02/26 showed fluid near the implant, but no clear evidence of infection at that site. - Pain control - Continue IV doxycycline & Unasyn as recommend by her surgeons at [facility] -> Switch to doxy/Augmentin on discharge. (2) Breast cancer: Status post neoadjuvant chemotherapy and bilateral mastectomy with breast reconstruction at [facility]. 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 Left stage Ia with multi-biology [id number] grade 2 invasive ductal carcinoma, grade 3 ductal carcinoma in situ and grade 2 invasive lobular carcinoma. - Continue letrozole 2.5 mg p.o. daily (3) Tachycardia: Sinus. Likely related to pain, mild dehydration, possible response to infection. - Monitor -> Improving overall, but still mildly tachycardic. (4) History of pulmonary embolus (PE): None noted on CTA chest on admission. - Continue rivaroxaban 20 mg p.o. daily (5) Thyroid nodule: Noted incidentally on CT. Previous ultrasound of this in July, although I am unclear whether FNA was performed at this time. No pathology in [employer] EHR. - Will discuss with patient. (6) DVT prophylaxis: Continue on rivaroxaban as above Admission and Anticipated Discharge Date Admission Date: February 26, 2020 Subjective Doing better today. Less pain at the surgical site. Some purulence expressed by the Plastic Surgery team this morning. Reports no fevers/chills, chest pain, shortness of breath, abdominal pain, nausea, or vomiting. Physical Exam Constitutional: WD/WN, vitals as above Eyes: EOM intact bilaterally; no conjunctival abnormality ENMT: external ear and nose normal, oropharynx normal Neck: trachea midline, no thyromegaly normal visual inspection Respiratory: normal respiratory effort, lungs clear to auscultation no respiratory distress Cardiovascular: RRR, no murmur, no edema Gastrointestinal (Abdomen): Inspection/Auscultation: abdomen normal to inspection; abdomen not distended Musculoskeletal: no cyanosis or clubbing, extremities motor strength 5/5 Neurologic: moves all extremities and awake Psychiatric: Orientation: alert, oriented to person and cooperative Results & Data Results & Data (MN) Vital Signs (Past 12 Hours) Vital Signs Temp Pulse Resp BP Pulse Ox 02/28/20 11:59 36.8 C 103 H 18 106/69 93 02/28/20 08:01 36.6 C 100 H 18 105/70 93 02/28/20 06:41 37.1 C 96 H 18 102/66 90 PG Care Time/CCT Total # of Minutes Spent Total Time Spent with Patient: Total time spent is greater than 50% in coordination of care (as documented) at patient's floor/unit and/or counseling patient: Coding Level of Care Code 58471 Subseq Hosp Care Lvl 2 Diagnoses Surgical wound infection T81.49XA Breast cancer C50.811; C50.812; Z17.0 Breast location: overlapping sites of breast Estrogen receptor status: positive Patient sex: female Laterality: bilateral Tachycardia R00.0 History of pulmonary embolus (PE) Z86.711 Thyroid nodule E04.1 DVT prophylaxis Z29.9 (1) Breast cancer Breast location: overlapping sites of breast Estrogen receptor status: positive Patient sex: female Laterality: bilateral Qualified Code(s): C50.811 - Malignant neoplasm of overlapping sites of right female breast; C50.812 - Malignant neoplasm of overlapping sites of left female breast; Z17.0 - Estrogen receptor positive status [ER+]
[2020-02-28] MEDS: RIVAROXABAN 20 MG TAB PO SCH (16:44)
[2020-02-28] MEDS: OXYCODONE HCL IR 5 MG TAB (IMMEDIATE RELEASE) PO PRN (22:07)
[2020-02-29] MEDS: AMPICILLIN/SULBACTAM SOD 3,000 MG in 0.9 % SODIUM CHLORIDE 100 ML IV SCH ×2 (01:14→05:49)
[2020-02-29 03:06] VITALS: BP 96/64
[2020-02-29] MEDS: DOXYCYCLINE HYCLATE 100 MG in DEXTROSE 5% 100 ML IV SCH (06:29)
[2020-02-29 07:55] VITALS: TEMP 98.4; O2SAT 92
--- NOTE | 2020-02-29 07:55 | Surgery Progress Note ---
Date of Service February 29, 2020 Assessment & Plan (1) S/P breast reconstruction: Patient has been started on doxycycline and Unasyn. Case discussed with surgeon in [place]- wound must be packed twice daily until her follow-up in [place]. Packing/dressing change education was provided to the patient and her via FaceTime by myself, and they feel comfortable with the dressing changes. They were made aware that they may call our office on Tuesday with any concerns regarding the dressing change, until follow-up in [place] on . OK for D/C home on PO Bactrim. (2) Surgical wound infection: (3) S/P bilateral mastectomy: Subjective Patient reports no change in symptoms. Is tolerating the IV antibiotics Review of Systems Respiratory: pain with inspiration Physical Exam Constitutional: WD/WN, vitals as above Chest (Breasts): Additional Comments: There are no cellulitic changes on exam. right breast lateral dressing removed and a small amount of bloody drainage present on packing. no purulent drainage was expressed. wound re-packed Results & Data Vital Signs (Past 12 Hours) Vital Signs Temp Pulse Resp BP Pulse Ox 02/29/20 03:00 37.0 C 93 H 20 96/64 L 93 02/29/20 00:00 36.7 C 83 20 106/71 95 PG Care Time/CCT Total # of Minutes Spent Total Time Spent with Patient: Total time spent is greater than 50% in coordination of care (as documented) at patient's floor/unit and/or counseling patient: Coding Level of Care Code 63489 Subseq Hosp Care Lvl 2 Diagnoses S/P breast reconstruction Z98.82 Surgical wound infection T81.49XA S/P bilateral mastectomy Z90.13
[2020-02-29] MEDS: ACETAMINOPHEN 325 MG TAB PO SCH (08:16)
[2020-02-29] MEDS: CALCIUM 600MG + VIT D 400 IU TAB PO SCH (08:16)
[2020-02-29] MEDS: LETROZOLE 2.5 MG TAB PO SCH (08:16)
[2020-02-29] MEDS: MULTIVITAMIN TAB PO SCH (08:16)
[2020-02-29 09:52] LABS: Basophils # (auto) 0.02 K/uL (0-0.2); Basophils % (auto) 0.4 %; Eosinophils # (auto) 0.14 K/uL (0-0.5); Eosinophils % (auto) 2.5 %; Hematocrit (blood only) 28.5 % (37-47); Immature Granulocytes # (auto) 0.01 K/uL (0.00-0.02); Immature Granulocytes % (auto) 0.2 %; Lymphocytes # (auto) 0.52 K/uL (1.2-3.4); Lymphocytes % (auto) 9.2 %; Mean Corpuscular Hemoglobin 28.6 pg (25-34); Mean Corpuscular Hgb Conc 31.6 g/dL (32-36); Mean Corpuscular Volume 90.5 fL (80-100); Mean Platelet Volume 9.2 fL (7.4-10.4); Monocytes # (auto) 0.58 K/uL (0.11-0.59); Monocytes % (auto) 10.3 %; Neutrophils # (auto) 4.36 K/uL (1.4-6.5); Neutrophils % (auto) 77.4 %; Platelet Count 320 K/uL (130-400); RDW Coefficient of Variation 13.2 % (11.5-14.5); RDW Standard Deviation 43.3 fL (36.4-46.3); Red Blood Count 3.15 M/uL (4.2-5.4); White Blood Count 5.63 K/uL (4.8-10.8)
[2020-02-29 11:30] VITALS: PULSE 81
--- NOTE | 2020-02-29 16:20 | Discharge Summary ---
Date of Service February 29, 2020 Admission HPI Per Admitting Provider Elaine Burns is a 55-year-old female with history of bilateral breast cancer who presents to the ER with low-grade fever and right-sided chest pain. Her symptoms started at the same time last night. The pain is sharp, worse on inspiration and palpation, associated shortness of breath and low-grade fever. Currently severity 6/10, on arrival in the ER 9/10. No cough or known exposure to COVID-19. No myalgias, abdominal pain, loss of taste or smell. Previous SARS-CoV-2 test negative prior to her surgery on February 07 (not available in EHR). She had right stage IIIb T4N2M0 grade 2 invasive ductal carcinoma and left stage Ia will tolerate biology [id number] grade 2 invasive ductal carcinoma, grade 3 ductal carcinoma in situ and grade 2 invasive lobular carcinoma. She received neoadjuvant chemotherapy with good response. However this was complicated in September when she developed a blood clot around her port catheter for which she is being treated with Xarelto. She underwent bilateral mastectomy with removal of Mediport earlier this month with subsequent drain removal last week. She was doing relatively well after the drain removal up until last night. Her care was discussed by Dr. Stewart in the ER with Dr. Emigdio Lucas (patient's Breast surgeon at [facility]) who advised for patient admission with intravenous doxycycline to cover for a postoperative surgical wound infection. Principal Diagnosis Surgical site infection Discharge Exam Constitutional WD/WN, vitals as above Eyes EOM intact bilaterally; no conjunctival abnormality ENMT external ear and nose normal, oropharynx normal Neck trachea midline, no thyromegaly normal visual inspection Respiratory normal respiratory effort, lungs clear to auscultation no respiratory distress Cardiovascular RRR, no murmur, no edema Gastrointestinal (Abdomen) Inspection/Auscultation: abdomen normal to inspection; abdomen not distended Musculoskeletal no cyanosis or clubbing, extremities motor strength 5/5 Neurologic moves all extremities and awake Psychiatric Orientation: alert, oriented to person and cooperative Discharge Data Allergies Allergy/AdvReac Type Severity Reaction Status Date / Time No Known Allergies Allergy Verified 02/26/20 14:24 Consultations 02/26/20 16:07 ED Decision to Admit Stat 02/27/20 12:21 Consult Plastic Surgery Routine Ordered Studies 02/26/20 13:22 CT angio chest PE protocol Stat 02/27/20 14:00 US breast RT limited Routine Hospital Course (1) Surgical wound infection: Right breast. - Discussed with Dr. Guerrero & [facility] plastic surgeon on 02/27 and then with our plastic surgery PA today. -> Wound culture growing MSSA. - Ultrasound on 02/26 showed fluid near the implant, but no clear evidence of infection at that site. - Pain control - Continue IV doxycycline & Unasyn while inpatient. Discharged on Bactrim per Dr. Keller. Will follow up with him in the clinic next week. (2) Breast cancer: Status post neoadjuvant chemotherapy and bilateral mastectomy with breast reconstruction at [place]. 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 Left stage Ia with multi-biology [id number] grade 2 invasive ductal carcinoma, grade 3 ductal carcinoma in situ and grade 2 invasive lobular carcinoma. - Continue letrozole 2.5 mg p.o. daily (3) Tachycardia: Sinus. Likely related to pain, mild dehydration, possible response to infection. - Monitor -> Improving overall, but still mildly tachycardic. On discharge, in the 90s. (4) History of pulmonary embolus (PE): None noted on CTA chest on admission. - Continue rivaroxaban 20 mg p.o. daily (5) Thyroid nodule: Noted incidentally on CT. Previous ultrasound of this in July, although I am unclear whether FNA was performed at this time. No pathology in [employer] EHR. - Outpatient follow up. (6) DVT prophylaxis: Continue on rivaroxaban as above Total Time Total Time Spent Total Time Spent (In Minutes): 35 Discharge Plan Discharge Items Patient Disposition: Home - Self-Care Reason For Visit: SURGICAL WOUND INFECTION Discharge Diagnosis: Surgical site infection Activity: Resume your previous activity Non-emergency contact: Primary Care Provider and Surgeon Call non-emergency contact if: your symptoms worsen and your temperature is above 101 Follow-up/Referrals: Анна Elise MD [Primary Care Provider] - Diet: Regular Addtl Attending Provider Instructions: You were admitted to the hospital with an infection at the right chest surgical site. We started you on IV antibiotics, and we feel you are ready to go. We have been speaking with your [place] plastic surgeon, Dr. Orlando Keller who would like you to go home on a single, twice-a-day antibiotic called Bactrim. You will need to take your first dose tonight before bedtime, then two times per day after that. We will give you enough to get you through next Tuesday. If Dr. Lul alas thinks you need further antibiotics, he can prescribe more after that point. This medication has fewer side effects compared to doxycycline or Augmentin (what we had previously thought we'd put you on); however, you should drink plenty of fluids because it can sometimes cause kidney issues if you get dehydrated. So, please drink enough to keep your urine light yellow to clear to prevent any kidney issue. We are also giving you enough supplies to get you through to next to see Dr. Keller. Please change your dressing twice a day following Brett's instructions. On discharge, your white cell count is 5.6 and has actually come down from a peak of 10.4 on February 25. This along with your improving heart rate and normal temperature (no fevers inpatient) all indicate the infection is being controlled and eliminated by our antibiotic regimen. Please call Dr. Keller's office if you see increased redness, increased swelling, increased pain, or other concerning symptoms at the surgical site, or if you heart rate consistently goes above 100, you have a fever greater than 101 degrees, or any dizziness, lightheadedness, or other concerning symptoms. These are all signs that you may have a deeper infection that is getting worse. Pending Studies at Discharge: No Stand-Alone Forms: My [facility], Smoking Cessation Medications and DC Order Prescriptions: New sulfamethoxazole-trimethoprim [Bactrim DS] 800-160 mg tablet 1 tab PO BID Qty: 17 RF: 0 Continued multivitamin Tablet 1 tab PO QAM RF: 0 letrozole 2.5 mg tablet 2.5 mg PO QAM RF: 0 diazepam 5 mg tablet 5 mg PO UD RF: 0 oxycodone 5 mg tablet 5 mg PO Q4H PRN (Reason: Pain) RF: 0 Xarelto 20 mg tablet 20 mg PO QAM RF: 0 calcium carbonate-vitamin D3 [Caltrate with Vitamin D3] 600 mg(1,500mg) -800 unit Tablet 1 tab PO QAM RF: 0 trastuzumab 150 mg Recon Soln 0 mg IV UD RF: 0 Discharge Orders: Discharge Order (Routine); Ordered 02/29/20 Ordered By: Bolivar Ambrocio Admission Data Admit Date/Time: 02/28/20 17:01 Attending Provider: Bolivar Ambrocio Admit Provider: Alex Guo Primary Care Provider: Анна Elise Other Providers: Bolivar Ambrocio ; Alex Guo ; Ines Guerrero Other Interventions: Discharge Summary Assessment (RN) Last Done: 02/29/20 11:28 DC Date/Time DO NOT enter until pt leaves facility: 02/29/20 12:00 Coding Level of Care Code D/C Day Management >30 mins Diagnoses Surgical wound infection T81.49XA Breast cancer C50.811; C50.812; Z17.0 Breast location: overlapping sites of breast Estrogen receptor status: positive Patient sex: female Laterality: bilateral Tachycardia R00.0 History of pulmonary embolus (PE) Z86.711 Thyroid nodule E04.1 DVT prophylaxis Z29.9
== END 2020-02-29 12:00 | disposition home or self-care (01) | DRG 863 ==
LOC: ED 11:46 → 2N 11:46 → SUATTDRO 17:10 → 2N 18:40